=== PATIENT | male | born 1975 | race Caucasian/White ===

== ENCOUNTER 2025-02-17 06:12 | Day surgery (SDC) | payer BC ==
[~2025-02-17] VITALS: Ht 193 cm; Wt 97.6 kg
[~2025-02-17 06:12] MED LIST: IBUHYD PO; PENVK500 PO; RXHYDACE PO
[2025-02-17] MEDS ORDERED: CeFAZolin Sodium 2,000 MG VIAL ONE (06:25)
[2025-02-17] MEDS ORDERED: FentaNYL Citrate 50 MCG/ML 2 ML Injection ONE (06:57)
[2025-02-17] MEDS ORDERED: Midazolam HCL 1 MG/ML 5MLVIAL ONE (06:58)
[2025-02-17] MEDS ORDERED: Midazolam HCl 1MG / ML 2ML Vial ONE (06:59)
[2025-02-17] MEDS ORDERED: Lidocaine HCl 2% Jelly 120MG/6ML SYR (20MG PER ML) ONE (07:09)
[2025-02-17] MEDS ORDERED: Ketorolac Tromethamine 30mg Vial ONE (07:32)
[2025-02-17] MEDS ORDERED: Ondansetron HCl 2 MG / ML 2ML Vial ONE (07:32)
[2025-02-17] MEDS ORDERED: Dexamethasone Sod Phos 10 MG/ML 1ML VIAL ONE (07:32)
[2025-02-17] MEDS ORDERED: Labetalol HCL 5 MG/ML 4ML Injection (Single Dose) ONE (07:33)
[2025-02-17] MEDS ORDERED: Bupivacaine 0.5% HCl 5 MG/ML 30MLVIAL XX ONE (07:37)
[2025-02-17] MEDS ORDERED: Sugammadex Sodium 200 MG/2ML SDV (100 MG/ML) ONE (07:58)
[2025-02-17] MEDS ORDERED: Phenylephrine HCl 100 MCG/ML-NS 10MLSYR (1MG/10ML) ONE (07:58)
[2025-02-17] MEDS ORDERED: Bupivacaine 0.5% HCl 5 MG/ML 30MLVIAL INJ ONE (09:10)
[2025-02-17 09:39] VITALS: BP 153/97
--- NOTE | 2025-02-17 10:35 | NUR ---
02/17/25 1035 Freeman Rain PT DENIED PAIN AND NAUSEA UPON D/C. FLACC 0/10. HE STATED THAT HE HAS CRUTCHES AND PAIN PERSCRIPTION AT HOME. HE WAS INSTRUCTED TO MONITOR B/P AT HOME AND FOLLOW UP WITH PCP.
== END 2025-02-17 10:25 | disposition home or self-care (01) ==
LOC: ORSCSDS 06:12
PROVIDERS: Podiatrist
PROC: 0QSP04Z Reposition Left Metatarsal with Internal Fixation Device, Open Approach (ICD-10-PCS; principal; 2025-02-17 07:30)
DX: M20.12 Hallux valgus (acquired), left foot (principal)
CPT/HCPCS: A9270; C1713; J0690; J1100; J1885; J2250; J2371; J2405; J2704; J3010; J7120